=== PATIENT | female | born 1955 | race African-American/Black ===

== ENCOUNTER 2018-11-08 21:21 | Emergency (ER) | payer SELFPAY ==
[~2018-11-08] VITALS: Ht 160 cm; Wt 47.0 kg
[2018-11-09 01:28] VITALS: BP 162/89
== END 2018-11-09 20:33 | disposition home or self-care (01) ==
LOC: ER 11-09 07:34
DX: S70.362A Insect bite (nonvenomous), left thigh, initial encounter (principal); S60.561A Insect bite (nonvenomous) of right hand, initial encounter; F17.200 Nicotine dependence, unspecified, uncomplicated; W57.XXXA Bitten or stung by nonvenomous insect and other nonvenomous arthropods, initial encounter; Y93.89 Activity, other specified; Y92.89 Other specified places as the place of occurrence of the external cause; Y99.8 Other external cause status; Z88.6 Allergy status to analgesic agent
CPT/HCPCS: 99283

== ENCOUNTER 2024-01-05 04:49 | Inpatient (IN) | payer OTHER, MEDICARE ==
[2024-01-05] VITALS (8 sets, daily range): PULSE 92; RESP 17–31; O2SAT 95
[~2024-01-05] VITALS: Ht 160 cm; Wt 42.3 kg
[2024-01-05] MEDS: MAGNESIUM 2 G PREMIX 50 ML IV ONE (05:01)
[2024-01-05 05:06] LABS: BASOPHILS % 1.1 % (0.0-2.0); HEMATOCRIT. 36.5 % (36.0-48.0); HEMOGLOBIN. 12.1 g/dL (12.0-16.0); LYMPHOCYTES % 34.2 % (20.0-50.0); MEAN CORPUSCULAR HGB CONC 33.1 g/dL (31.0-37.0); MEAN CORPUSCULAR VOLUME 90.6 fL (81.0-99.0); MEAN PLATELET VOLUME 8.3 fl (7.4-10.4); MONOCYTES % 11.5 % (2.0-8.0); NEUTROPHILS % 41.2 % (40.0-76.0); PLATELET 429 x1000/uL (130-400); RED BLOOD CELL COUNT 4.03 mill/uL (4.2-5.4); RED CELL DISTRIBUTION WIDTH 17.2 % (11.6-14.6); WHITE BLOOD COUNT 5.3 x1000/uL (4.5-11.0)
[2024-01-05] MEDS: METHYLPREDNISOLONE SOD SUCC 125MG/2ML (ACT-O-VIAL) IV STA (05:07)
[2024-01-05 05:15] LABS: CHLORIDE 109 mEq/L (98-107); POTASSIUM 5.4 mEq/L (3.5-5.1); SODIUM 145 mEq/L (136-145)
[2024-01-05] MEDS: SODIUM CHLORIDE 0.9% 1,000 ML IV ONE (05:15)
[2024-01-05 05:16] LABS: CARBON DIOXIDE 30 mEq/L (21-32)
[2024-01-05 05:17] LABS: CALCIUM 10.6 mg/dL (8.7-10.4)
[2024-01-05] MEDS: IPRATROPIUM BROMIDE (0.02%) 0.5MG/2.5ML NEB HHN STA (05:19)
[2024-01-05] MEDS: ALBUTEROL (0.083%) 2.5MG/3ML NEB HHN STA (05:19)
[2024-01-05 05:21] LABS: GLUCOSE 121 mg/dL (70-105)
[2024-01-05 05:22] LABS: UREA NITROGEN BLOOD 16 mg/dL (9-23)
[2024-01-05 05:24] LABS: LACTIC ACID 3.1 mmol/L (0.4-2.0)
[2024-01-05 05:31] LABS: ETHANOL BLOOD < 10 mg/dL (<10); TROPONIN I HIGH SENSITIVITY 146 ng/L (3.0-34)
[2024-01-05 05:45] LABS: INR 0.9; PARTIAL THROMBOPLASTIN TIME 24.6 sec (23.4-31.0); PROTHROMBIN TIME 10.1 sec (9.6-11.0)
[2024-01-05 06:11] LABS: BG BASE EXCESS -2.4 mmol/L (-2.0-3.0); BG CARBOXYHEMOGLOBIN 0.8 % (0.5-1.5); BG DEOXYHEMOGLOBIN 55.6 % (0.0-5.0); BG FRACTION INSPIRED OXYGEN 28; BG HCO3 ACT 25.4 mmol/L (21.0-28.0); BG METHEMOGLOBIN 0.3 % (0.5-1.5); BG OXYGEN SATURATION 43.8 % (94.0-98.0); BG OXYHEMOGLOBIN 43.3 % (94.0-98.0); BG PCO2 58.4 mmHg (32.0-45.0); BG PH 7.256 (7.350-7.450); BG PO2 < 30.3 mmHg (83.0-108.0); BG TOTAL HEMOGLOBIN 11.3 g/dL (12.0-16.0); BG VENT MODE MASK - BIPAP
[2024-01-05] MEDS: LEVOFLOXACIN 750MG PREMIX 150 ML IV NR (06:27)
[2024-01-05 08:43] LABS: TROPONIN I HIGH SENSITIVITY 208 ng/L (3.0-34)
[2024-01-05] MEDS: MORPHINE SULFATE 4 MG/ML INJ (FOR IV/IM USE) IV ONE (09:29)
[2024-01-05] MEDS: ASPIRIN 325MG EC TABLET PO ONE (09:35)
[2024-01-05] MEDS ORDERED: ONDANSETRON HCL 4MG/2ML INJ IV PRN (10:30)
[2024-01-05] MEDS ORDERED: GUAIFENESIN 200MG/10ML SUGAR FREE UDC PO PRN (10:30)
[2024-01-05] MEDS ORDERED: CLONIDINE 0.1MG TABLET PO PRN (10:30)
[2024-01-05] MEDS ORDERED: MORPHINE SULFATE 2 MG/ML INJ (NOT FOR IM USE) IV PRN (10:30)
[2024-01-05] MEDS ORDERED: DOCUSATE SODIUM 100MG CAPSULE PO PRN (10:30)
[2024-01-05] MEDS ORDERED: ACETAMINOPHEN 325MG TABLET PO PRN (10:30)
[2024-01-05] MEDS ORDERED: MAGNESIUM/ALUMINUM HYDROXIDE/SIMETHICONE 30ML UDC PO PRN (10:30)
[2024-01-05] MEDS ORDERED: IPRATROPIUM/ALBUTEROL 0.5-3(2.5)MG/3ML NEB HHN PRN (10:30)
[2024-01-05] MEDS: ALBUTEROL (0.083%) 2.5MG/3ML NEB HHN NR (10:43)
[2024-01-05] MEDS ORDERED: NITROGLYCERIN 0.4MG TABLET SL SL PRN (10:45)
[2024-01-05] MEDS: CALCIUM CHLORIDE 1GM/10ML SYR IV NR (11:07)
[2024-01-05] MEDS: METHYLPREDNISOLONE SOD SUCC 40MG/ML (ACT-O-VIAL) IV SCH (11:07)
[2024-01-05] MEDS: SODIUM POLYSTYRENE SULFONATE 15 G/60 ML BOT PO NR (11:08)
[2024-01-05] MEDS: SODIUM BICARBONATE 8.4% 50MEQ/50ML SYR IV NR (11:08)
[2024-01-05] MEDS: DEXTROSE 50% WATER 50ML SYRINGE IV ONE (11:08)
[2024-01-05] MEDS: ENOXAPARIN 40MG/0.4ML SYR SUBCUT SCH (11:09)
[2024-01-05] MEDS: INSULIN REGULAR (HUMULIN R) 1000UNITS/10ML VIAL IV NR (11:09)
[2024-01-05 12:28] LABS: BG BASE EXCESS 0.8 mmol/L (-2.0-3.0); BG CARBOXYHEMOGLOBIN 0.2 % (0.5-1.5); BG DEOXYHEMOGLOBIN 0.4 % (0.0-5.0); BG FRACTION INSPIRED OXYGEN 100; BG HCO3 ACT 25.9 mmol/L (21.0-28.0); BG METHEMOGLOBIN 0.2 % (0.5-1.5); BG OXYGEN SATURATION 99.6 % (94.0-98.0); BG OXYHEMOGLOBIN 99.2 % (94.0-98.0); BG PCO2 42.9 mmHg (32.0-45.0); BG PH 7.398 (7.350-7.450); BG PO2 254.2 mmHg (83.0-108.0); BG SAMPLE SITE RIGHT BRACHIAL; BG TOTAL HEMOGLOBIN 14.3 g/dL (12.0-16.0); BG VENT MODE MASK - BIPAP
[2024-01-05 13:20] LABS: TROPONIN I HIGH SENSITIVITY 238 ng/L (3.0-34)
[2024-01-05] MEDS: BUDESONIDE 0.5MG/2ML NEB HHN SCH (13:29)
[2024-01-05] MEDS: IPRATROPIUM/ALBUTEROL 0.5-3(2.5)MG/3ML NEB HHN SCH (13:30)
[2024-01-05 17:14] LABS: CREATINE KINASE 62 IU/L (34-145)
[2024-01-05 17:25] LABS: TROPONIN I HIGH SENSITIVITY 219 ng/L (3.0-34)
[2024-01-05 18:50] LABS: CLARITY URINE CLEAR (CLEAR); COLOR URINE YELLOW (YELLOW); GLUCOSE URINE 2+ (NEGATIVE); KETONES URINE NEGATIVE (NEGATIVE); LEUKOCYTE ESTERASE URINE NEGATIVE (NEGATIVE); NITRITE URINE NEGATIVE (NEGATIVE); OCCULT BLOOD URINE NEGATIVE (NEGATIVE); PROTEIN URINE TRACE (NEGATIVE); SPECIFIC GRAVITY URINE 1.017 (1.005-1.030)
[2024-01-05 19:12] LABS: BACTERIA URINE 2+; RBC URINE 0-2 /hpf (0-2); SQUAMOUS EPITHELIAL CELL URINE 1+ /lpf (RARE/1+)
[2024-01-05 19:13] LABS: *AMPHETAMINES SCREEN URINE NEGATIVE (NEGATIVE); *BENZODIAZEPINES SCREEN URINE NEGATIVE (NEGATIVE); WBC URINE 0-2 /hpf (0-2)
[2024-01-05 19:14] LABS: *BARBITURATES SCREEN URINE NEGATIVE (NEGATIVE); *COCAINE SCREEN URINE NEGATIVE (NEGATIVE); CANNABINOID URINE SCREEN NEGATIVE (NEGATIVE); ECSTASY MDMA SCREEN URINE NEGATIVE (NEGATIVE); METHADONE URINE SCREEN NEGATIVE (NEGATIVE); OPIATES URINE SCREEN PRESUMPTIVE POSITIVE (NEGATIVE); PHENCYCLIDINE URINE SCREEN NEGATIVE (NEGATIVE)
[2024-01-05 20:35] LABS: TROPONIN I HIGH SENSITIVITY 205 ng/L (3.0-34)
[2024-01-05] MEDS: METOPROLOL TARTRATE 25MG TABLET PO SCH (21:00)
[2024-01-05 21:36] LABS: TROPONIN I HIGH SENSITIVITY 179 ng/L (3.0-34)
[2024-01-05] MEDS: ATORVASTATIN CALCIUM 20MG TABLET PO SCH (21:40)
[2024-01-06] VITALS (17 sets, daily range): BP systolic 80–154; BP diastolic 46–86; PULSE 67–99; RESP 12–28; TEMP 36.3918–36.83628; O2SAT 100
[2024-01-06] MEDS ORDERED: ATOR20TA65 PO (00:47)
[2024-01-06] MEDS ORDERED: TIOT4MIS2 IH (00:47)
[2024-01-06] MEDS ORDERED: ALBU10.7 (00:47)
[2024-01-06] MEDS: ASPIRIN 81MG EC TABLET PO SCH (09:29)
[2024-01-06 11:16] LABS: CHLORIDE 108 mEq/L (98-107); POTASSIUM 4.9 mEq/L (3.5-5.1); SODIUM 142 mEq/L (136-145)
[2024-01-06 11:17] LABS: CARBON DIOXIDE 27 mEq/L (21-32)
[2024-01-06 11:18] LABS: CALCIUM 10.5 mg/dL (8.7-10.4)
[2024-01-06 11:22] LABS: CREATININE 0.9 mg/dL (0.6-1.0); GLUCOSE 119 mg/dL (70-105); TRIGLYCERIDE 66 mg/dL (0-150)
[2024-01-06 11:23] LABS: LDL CHOLESTEROL 111 mg/dL (5-100); UREA NITROGEN BLOOD 13 mg/dL (9-23)
[2024-01-06 11:24] LABS: CHOLESTEROL 188 mg/dL (<200); HDL CHOLESTEROL 66 mg/dL (>65)
[2024-01-06 11:29] LABS: T4 FREE 1.08 ng/dL (0.89-1.76); THYROID STIMULATING HORMONE 0.17 uIU/mL (0.55-4.78)
[2024-01-06 12:48] LABS: HEMATOCRIT. 31.2 % (36.0-48.0); HEMOGLOBIN. 10.1 g/dL (12.0-16.0); MEAN CORPUSCULAR HEMOGLOBIN 29.4 pg (28.0-32.0); MEAN CORPUSCULAR HGB CONC 32.4 g/dL (31.0-37.0); PLATELET 330 x1000/uL (130-400); RED BLOOD CELL COUNT 3.42 mill/uL (4.2-5.4); RED CELL DISTRIBUTION WIDTH 17.5 % (11.6-14.6); WHITE BLOOD COUNT 10.9 x1000/uL (4.5-11.0)
[2024-01-06 12:58] LABS: DIFFERENTIAL COMMENT 1
[2024-01-06 13:12] LABS: BG BASE EXCESS 3.1 mmol/L (-2.0-3.0); BG CARBOXYHEMOGLOBIN 0.2 % (0.5-1.5); BG DEOXYHEMOGLOBIN 0.5 % (0.0-5.0); BG FRACTION INSPIRED OXYGEN 40; BG HCO3 ACT 26.5 mmol/L (21.0-28.0); BG METHEMOGLOBIN 0.1 % (0.5-1.5); BG OXYGEN SATURATION 99.5 % (94.0-98.0); BG OXYHEMOGLOBIN 99.2 % (94.0-98.0); BG PCO2 36.2 mmHg (32.0-45.0); BG PH 7.483 (7.350-7.450); BG PO2 214.2 mmHg (83.0-108.0); BG SAMPLE SITE RIGHT BRACHIAL; BG TOTAL HEMOGLOBIN 10.4 g/dL (12.0-16.0); BG TOTAL RESPIRATORY RATE 21 b/min; BG VENT MODE MASK - BIPAP
[2024-01-06] MEDS: NICOTINE 14MG PATCH TD SCH (13:26)
[2024-01-06 13:32] LABS: ANISOCYTOSIS 1+; PLATELET ESTIMATE NORMAL
[2024-01-06 13:43] LABS: HEPATITIS B SURFACE ANTIGEN NEGATIVE (Negative)
[2024-01-06 14:05] LABS: HEPATITIS C AB NON REACTIVE (Neg) (Negative)
[2024-01-06] MEDS: CEFTRIAXONE 1GM/50ML 50 ML IV SCH (17:08)
[2024-01-06] MEDS: AZITHROMYCIN 500MG/250ML 250 ML IV SCH (17:09)
[2024-01-06] MEDS: ACETAMINOPHEN 325MG TABLET PO PRN (17:50)
[2024-01-06] MEDS: PANTOPRAZOLE SODIUM 40 MG/VIAL IV NR (18:35)
[2024-01-07] MEDS ORDERED: PANTOPRAZOLE SODIUM 40 MG/VIAL IV SCH (09:00)
== END 2024-01-06 22:21 | disposition short-term general hospital (02) | DRG 189 ==
LOC: ER 04:49 → 5EST 08:23 → EDBEDREQTM 08:41 → EDBEDREQ 08:41 → EDBEDREQSVC 17:42
PROVIDERS: ADMIT Hospitalist; ATTEND Hospitalist
PROC: 5A09357 Assistance with Respiratory Ventilation, Less than 24 Consecutive Hours, Continuous Positive Airway Pressure (ICD-10-PCS; principal; 2024-01-05)
DX: J96.21 Acute and chronic respiratory failure with hypoxia (principal); I21.A1 Myocardial infarction type 2; J44.1 Chronic obstructive pulmonary disease with (acute) exacerbation; E87.20 Acidosis, unspecified; E87.5 Hyperkalemia; Z20.822 Contact with and (suspected) exposure to COVID-19; F17.210 Nicotine dependence, cigarettes, uncomplicated; Z79.82 Long term (current) use of aspirin; Z88.6 Allergy status to analgesic agent; Z82.3 Family history of stroke; Z99.81 Dependence on supplemental oxygen; Z79.899 Other long term (current) drug therapy
CPT/HCPCS: 36415; 36600; 71045; 80048; 80061; 80305; 80320; 81003; 82375; 82550; 82805; 82962; 83605; 83880; 84439; 84443; 84484; 85025; 86705; 87340; 87426; 93005; 94640; 94660; 97166; 99285; J0456; J0696; J1650; J1815; J1956; J2270; J2470; J2919; J2920; J3475; J3490; J7030; J7626; G0480